=== PATIENT | female | born 1965 | race Caucasian/White ===

== ENCOUNTER → 2016-11-05 | Outpatient (CLI) | payer BC ==
--- NOTE | 2016-11-05 15:22 | MAMMOGRAPHY REPORT ---
BILATERAL DIGITAL SCREENING MAMMOGRAM TOMOSYNTHESIS WITH CAD: 11/05/2016 CLINICAL HISTORY: Routine screening. Patient has no complaints. TECHNIQUE: Breast tomosynthesis in addition to standard 2D mammography was performed. Current study was also evaluated with a Computer Aided Detection (CAD) system. COMPARISON: Comparison is made to exams dated: 11/02/2015 mammogram, 10/31/2014 mammogram, 10/25/2013 mammogram, 10/21/2012 mammogram, 10/21/2011 mammogram, and 10/05/2010 mammogram - [facility] enter. BREAST COMPOSITION: The tissue of both breasts is heterogeneously dense, which may obscure small ma sses. FINDINGS: There is a possible 10 mm mass in the lateral posterior left breast, best seen on the CC view. Additional spot compression tomosynthesis views and possibly ultrasound are recommended. No other suspicious mass, architectural distortion or cluster of microcalcifications is seen bilater ally. IMPRESSION: ACR BI-RADS CATEGORY 0: INCOMPLETE EVALUATION: NEED ADDITIONAL IMAGING EVALUATION The possible 10 mm mass in the lateral, posterior left breast needs additional evaluation. The patient will be called to schedule an appointment. Approximately 10% of breast cancers are not detected with mammography. A negative mammographic repor t should not delay biopsy if a clinically suggestive mass is present. Arlene Colorado M.D. ay/:11/05/2016 08:13:40 Certified Wellness Program Coordinator: Chelsea AMARO(Teressa)(Juan Diego), [facility] letter sent: Addl Imaging 0 BI-RADS Code: ACR BI-RADS Category 0: Incomplete Evaluation: Need Additional Imaging Evaluation
== END | disposition home or self-care (01) ==
LOC: C.MAMM 07:12
DX: Z12.31 Encounter for screening mammogram for malignant neoplasm of breast (principal); N63 Unspecified lump in breast

== ENCOUNTER → 2016-11-13 | Outpatient (CLI) | payer BC ==
--- NOTE | 2016-11-13 14:11 | MAMMOGRAPHY REPORT ---
UNILATERAL LEFT DIGITAL DIAGNOSTIC MAMMOGRAM TOMOSYNTHESIS WITH CAD AND TARGETED LEFT ULTRASOUND: CLINICAL HISTORY: Callback from screening mammogram for possible left breast mass. TECHNIQUE: Breast tomosynthesis in addition to standard 2D mammography was performed. Current study was also evaluated with a Computer Aided Detection (CAD) system. Spot compression Left CC and MLO 2D and tomosynthesis images were obtained. COMPARISON: Comparison is made to exams dated: 11/05/2016 mammogram, 11/02/2015 mammogram, 10/31/2014 mammogram, 07/21/2014 ultrasound, 07/21/2014 mammogram, and 10/25/2013 mammogram - [facility]. BREAST COMPOSITION: The tissue of the left breast is heterogeneously dense, which may obscure small masses. FINDINGS: The previously described ovoid 10 mm asymmetry seen within the left lateral breast is les s prominent on the spot compression views, and is equivocal for a mass versus normal fibroglandular tissue. This is seen on the cc view only with no correlate noted on the MLO view. Targeted ultrasound was performed of the left lateral breast in the region of the mammographic asymm etry. Multiple cysts were seen within the left lateral breast. In the left breast at 4:00, 5 cm fr om the nipple, there is a nearly anechoic circumscribed oval mass which measures 7 x 2 x 6 mm and is probably benign and likely represents a cyst. In the left breast at 1:00, 2 cm from the nipple, th ere is an oval circumscribed hypoechoic 6 x 3 x 6 mm mass, which likely represents a complicated cys t although a benign-appearing solid mass cannot be excluded. Adjacent to this is an anechoic benign cyst which measures 4 x 5 mm, as well as an oval anechoic benign 4 mm cyst in the left breast at 1: 00, 3 cm from the nipple. In the left breast at 1:00, 6 cm from the nipple, there is an oval circum scribed anechoic mass with some echogenic internal material measures 9 x 6 x 8 mm, which is probably benign and likely represents a complicated cyst. This mass may potentially correspond with the kashif mographic mass; alternatively, the mammographic finding could represent normal fibroglandular tissue . No suspicious masses were noted on ultrasound in the left lateral breast. IMPRESSION: ACR-BI-RADS CATEGORY 3: PROBABLY BENIGN, TARGETED ULTRASOUND ACR-BI-RADS CATEGORY 3: SD OBABLY BENIGN Multiple anechoic and hypoechoic masses seen within the left lateral breast on ultrasound at 1:00 an d 4:00, which are probably benign and likely represent simple and complicated cysts. The largest 9 mm mass in the left breast at 1:00 could correspond with the mammographic asymmetry; alternatively, the mammographic finding could represent normal fibroglandular tissue. Findings are probably benign and recommend follow-up diagnostic tomosynthesis mammograms and ultrasound of the left breast in 6 months to reevaluate. The patient has been verbally notified of the results. Approximately 10% of breast cancers are not detected with mammography. A negative mammographic repor t should not delay biopsy if a clinically suggestive mass is present. Alyse Vivar M.D. ah/:11/13/2016 09:56:07 Breaking Machine Operator: Demetrice AMARO(Teressa)(Juan Diego), [facility] letter sent: Follow Up Recommended 3 BI-RADS Code: ACR-BI-RADS Category 3: Probably Benign Ultrasound BI-RADS: ACR-BI-RADS Category 3: P robably Benign
== END | disposition home or self-care (01) ==
LOC: C.MAMM 09:08
DX: N63 Unspecified lump in breast (principal)

== ENCOUNTER → 2016-11-20 | Outpatient (CLI) | payer BC | END | disposition home or self-care (01) | LOC: C.PAPS 09:49 | PROVIDERS: ATTEND Obstetrics & Gynecology | DX: Z01.419 Encounter for gynecological examination (general) (routine) without abnormal findings (principal) ==

== ENCOUNTER → 2017-07-01 | Outpatient (CLI) | payer OTHER ==
--- NOTE | 2017-07-01 14:30 | MAMMOGRAPHY REPORT ---
UNILATERAL LEFT DIGITAL DIAGNOSTIC MAMMOGRAM TOMOSYNTHESIS WITH CAD AND TARGETED LEFT ULTRASOUND: 06/16 CLINICAL HISTORY: 51-year-old woman presents for follow-up in the left breast, with particular attent ion to circumscribed benign-appearing solid and solid versus cystic masses in the 1:00 and 4:00 axes on prior ultrasound. Patient initially called back from screening for an asymmetry in the upper oute r posterior left breast. TECHNIQUE: Left breast tomosynthesis in addition to standard 2D mammography was performed. Current st udy was also evaluated with a Computer Aided Detection (CAD) system. COMPARISON: Comparison is made to exams dated: 11/13/2016 ultrasound, 11/13/2016 mammogram, 11/05/2016 mammogram, 11/02/2015 mammogram, 10/31/2014 mammogram, and 07/21/2014 ultrasound - [facility]. BREAST COMPOSITION: The tissue of the left breast is heterogeneously dense, which may obscure small masses. FINDINGS: A partially circumscribed oval mass in the upper outer posterior left breast appears visual ly increased in size comparing to the full field left CC mammogram performed on 11/05/2016. It curre ntly measures 13 x 10 mm on tomosynthesis slice 35/55, and previously measured 10 x 7 mm on slice 32/ 56. Further characterization with ultrasound was performed. No other obvious new or increasing mass , focal area of architectural distortion or suspicious calcifications are identified in the left tavon st. Targeted ultrasound was performed in the lateral left breast with particular attention to the 1:00 an d 4:00 axes. In the 1:00 left breast, 6 cm from the nipple, there is a macro lobulated and angular s olid vascular mass measuring 12.3 x 12.0 x 6.9 mm. This has increased in size comparing to a prior u ltrasound performed 10/14/2016 at which time it measured 8.7 x 5.6 x 8.1 mm. Although this could rep resent a fibroadenoma, definitive characterization with ultrasound guided core biopsy is recommended given the interval increase in size. In the 1:00 axis, 2 cm from the nipple, there is an oval parallel circumscribed hypoechoic solid appe aring mass measuring 6.7 x 3.0 x 5.5 mm, previously measured 6.4 x 3.2 x 5.6 mm. . A cyst versus sev eral abutting cysts are seen deep to this benign appearing mass measuring 7.1 x 10.0 mm. In addition 3:00 left breast, 1 cm from the nipple, there is another oval parallel circumscribed hypoechoic lam d versus cystic mass measuring 7.3 x 3.5 x 4.9 mm. This is newly visualized. In the 4:00 left breas t, 5 cm from the nipple, there is an oval parallel circumscribed hypoechoic solid versus cystic mass measuring 6.8 x 2.6 x 5.3 mm. This is unchanged comparing to the prior ultrasound at which time it me asured 6.6 x 2.3 x 5.7 mm. IMPRESSION: ACR BI-RADS CATEGORY 4: SUSPICIOUS, TARGETED ULTRASOUND ACR BI-RADS CATEGORY 4: SUSPICIO US 1. Slight interval increase in size of a solid, lobulated and slightly angular mass in the 1:00 left breast, 6 cm from the nipple, currently measuring 12.3 mm, increased from 8.7 mm. Definitive charac terization with an ultrasound-guided core needle biopsy is recommended. 2. Other oval parallel circumscribed hypoechoic benign-appearing solid versus cystic masses in the 1 :00 left breast, 2 cm from the nipple and the 4:00 left breast, 5 cm from the nipple are unchanged. Another short interval follow-up targeted ultrasound in 6 months is recommended to ensure longer stab ility. 3. Newly visualized similar appearing oval parallel circumscribed hypoechoic solid versus cystic mas s in the 3:00 left breast on ultrasound for which repeat attention in 6 months is also recommended. These results and recommendations were discussed with the patient at the time of the exam. She tenta tively scheduled the left breast biopsy prior to leaving our department. Approximately 10% of breast cancers are not detected with mammography. A negative mammographic report should not delay biopsy if a clinically suggestive mass is present. Arlene Colorado M.D. ay/:07/01/2017 12:23:23 Donor Relations Manager: Lina BRYANT)(Juan Diego), [facility] letter sent: Abnormal 4/5 BI-RADS Code: ACR BI-RADS Category 4: Suspicious Ultrasound BI-RADS: ACR BI-RADS Category 4: Suspici ous
== END | disposition home or self-care (01) ==
LOC: C.MAMM 07:42
PROVIDERS: ATTEND Obstetrics & Gynecology
DX: N63.21 Unspecified lump in the left breast, upper outer quadrant (principal)

== ENCOUNTER → 2017-07-04 | Outpatient (CLI) | payer OTHER ==
--- NOTE | 2017-07-04 11:13 | Discharge Instructions ---
Discharge Instructions Procedure Procedure Date: Jul 04, 2017. Reason for visit: Left Mass. Discharge Discharge Date: Jul 04, 2017. Discharge Diagnosis: status post breast biopsy Instructions Activity Recommendations: Additional Limitations (see below) Return to School/Work: no limitations Recommended Home Diet: No Limitations Provider Instructions: ACTIVITY RECOMMENDATIONS: * No lifting, pushing, pulling or exercising the affected side for three days. RETURN TO SCHOOL/WORK: * You may return to work/school after the procedure, but do not perform any strenuous activities for 24 to 48 hours. MEDICATIONS: * Tylenol (two 325 mg) every four to six hours if needed for mild pain (if not allergic to Tylenol). DIET: * Resume previous diet. SPECIAL CARE INSTRUCTIONS: * Keep biopsy site dry for 24 hours. May shower after 24 hours, but do not soak (bathe) incision. * May remove Tegaderm (plastic patch) tomorrow AFTER showering. * Leave the steri-strips on for one week. Allow the steri-strips to fall off by themselves. If not off after one week, you may remove them. You may place a Bandaid crosswise over the strips, if desired. * Apply ice 10 minutes on and 10 minutes off as needed. * Wear a bra at bedtime to sleep more comfortably for 2-3 days. * Your referring physician should have the results after approximately 5 to 7 business days. * Call for unusual bleeding, fever, drainage, etc or if you have any questions call during normal business hours or after hours call Dr Vivar, . FOLLOW UP VISIT: Follow-up with Referring Physician as scheduled. Pasquale Sanchez Recommendations: Call your doctor if: * Temperature above 101 degrees * Pain not relieved by pain medicine ordered * There is increased drainage or redness from any incision * You have any unanswered questions or concerns. Your Doctors Instructions noted above were prepared by provider Alyse Vivar. Patient Signature Section: Patient Instructions Signature Page Umm Arcos Patient (or Guardian) Signature/Date: I have read and understand the instructions given to me by my caregivers. Caregiver/RN/Doctor Signature/Date: The above-named patient and/or guardian has received patient instructions on this date. + Original Patient Signature Page (only) stays with chart. Please make copy for patient.
--- NOTE | 2017-07-04 13:57 | MAMMOGRAPHY REPORT ---
ULTRASOUND GUIDED BIOPSY LEFT BREAST: 07/04/2017 CLINICAL HISTORY: Left 1:00 breast mass. PATIENT CONSENT: The procedure, risks and benefits were discussed with the patient and informed writt en consent was obtained. A timeout was performed immediately prior to the procedure. PROCEDURE DESCRIPTION: With ultrasound guidance, aseptic technique, and lidocaine as the local anesth etic (1% lidocaine to anesthetize the skin and 1% lidocaine with epinephrine to anesthetize the deepe r tissues), the mass of concern in the left 1:00 breast was sampled 4 times with a 14-gauge Achieve b iopsy needle. Immediately thereafter, with ultrasound guidance, aseptic technique, and lidocaine as t he local anesthetic, a metallic localizer clip was placed centrally in the mass. Direct pressure was applied to the site immediately post procedure and hemostasis was achieved. Postprocedure unilatera l mammograms were performed to confirm placement of the clip in the expected location of the breast m ass. The patient tolerated the procedure without complication. She was given wound care instruction s. The specimens were sent to pathology for analysis. COMPARISON: Comparison is made to exams dated: 07/01/2017 ultrasound, 07/01/2017 mammogram, 11/13/2016 ultrasound, 11/13/2016 mammogram, and 11/05/2016 mammogram - [facility]. IMPRESSION: ULTRASOUND GUIDED BIOPSY Ultrasound-guided core needle biopsy of the left 1:00 breast mass, with clip placement. The patient will receive pathology results from her referring provider. Alyse Vivar M.D. ah/:07/04/2017 11:14:51 Attending Technologist: Adam Mora RT(R)(M), [facility] [employer] Parer: Alyse Vivar MD, [facility]
--- NOTE | 2017-07-04 13:59 | MAMMOGRAPHY REPORT ---
UNILATERAL LEFT DIGITAL DIAGNOSTIC MAMMOGRAM TOMOSYNTHESIS: 07/04/2017 CLINICAL HISTORY: Status post left breast biopsy. TECHNIQUE: Breast tomosynthesis in addition to standard 2D mammography was performed. Postprocedura l left CC and ML tomosynthesis images including C views were obtained. COMPARISON: Comparison is made to exams dated: 11/13/2016 ultrasound, 11/13/2016 mammogram, 11/05/2016 mammogram, 11/02/2015 mammogram, 10/31/2014 mammogram, and 10/25/2013 mammogram - [facility]. BREAST COMPOSITION: The tissue of the left breast is heterogeneously dense, which may obscure small masses. FINDINGS: A new biopsy marker clip is seen within the biopsied mass in the left 1:00 breast. No sig nificant postbiopsy hematoma is seen. IMPRESSION: POST PROCEDURE IMAGING FOR MARKER PLACEMENT New biopsy marker clip status post left breast biopsy. Pathology results are pending. Approximately 10% of breast cancers are not detected with mammography. A negative mammographic report should not delay biopsy if a clinically suggestive mass is present. Alyse Vivar M.D. ah/:07/04/2017 11:30:45 Menswear Salesperson: Adam Mora RT(R)(M), [facility] BI-RADS Code: Post Procedure Imaging For Marker Placement
== END | disposition home or self-care (01) ==
LOC: C.MAMM 10:27
PROVIDERS: ATTEND Obstetrics & Gynecology
DX: N63.20 Unspecified lump in the left breast, unspecified quadrant (principal); D24.2 Benign neoplasm of left breast

== ENCOUNTER → 2017-07-22 | Day surgery (SDC) | payer OTHER ==
[2017-07-16 11:56] VITALS: Ht 157.5 cm; Wt 59.1 kg
[~2017-07-22] VITALS: Ht 157.5 cm; Wt 59.1 kg
[~2017-07-22] MED LIST: ATROPINE SULFATE 0.1 MG/ML 5ML SYR IV PRN; BUPIVACAINE 0.5 % 5 MG/1 ML MPF 30ML VIAL ONE; CALC600T9 PO; CEFAZOLIN 2000MG IV PUSH 15 ML IV SCH; DEXAMETHASONE SOD INJ 4 MG/ML VIAL ONE; EpHEDrine SULFATE INJ 50 MG/ML AMP IV PRN; FENTANYL CITRATE INJ 50 MCG/1 ML 2 ML VIAL IV PRN; FENTANYL CITRATE INJ 50 MCG/1 ML 2 ML VIAL ONE; HYDR-5688 PO; HYDROCODONE/ACETAMIN 5/325MG TAB PO PRN; IRON PO; LACTATED RINGER'S 1000ML 1,000 ML IV SCH; LIDOCAINE HCL 1% 20 ML VIAL ONE; LIDOCAINE HCL 2% 2 ML VIAL (20MG/ML) ONE; METHYLENE BLUE 0.5% 10 ML VIAL ONE; MIDAZOLAM HCL 1 MG/ML 2ML VIAL ONE; OMEG10007 PO; ONDANSETRON INJ 2 MG/ML 2 ML VIAL IV PRN; ONDANSETRON INJ 2 MG/ML 2 ML VIAL ONE; PROPOFOL IV EMULSION 10 MG/ML 20 ML VIAL IV ONE; SODIUM CHLORIDE 0.9% 1000ML 1,000 ML IV SCH; VITAMIN C PO; VNTHFA/IN INH
--- NOTE | 2017-07-22 11:52 | History & Physical Bridge - SC ---
H&P Re-Evaluation Bridge Note: I have examined the patient, reviewed the History & Physical and in the interval since the performance of the History & Physical I have noted the following changes of clinical significance: No changes noted
--- NOTE | 2017-07-22 12:53 | [facility] Operative Report ---
Operative Report Operative Date Jul 22, 2017. Pre-Operative Diagnosis Left Breast Phyllodes Neoplasm Post-Operative Diagnosis Same Procedure(s) Performed Left Breast Biopsy With Needle Localization Surgeon Dr. Montes De Oca Varnishing Unit Operator Surgeon(s) Delores Long Estimated Blood Loss 10 mL Findings clip w/n tissue Specimens A. Left Breast Tissue - out @ 1227, sent to [facility] @ 1231. Needle is lateral, short silk suture is inferior, long suture is superior. B. Additional Inferior Tissue - Methylene blue is new margin C. Additional Superior Tissue - Methylene blue is new margin. Drains None Anesthesia Type General Complication(s) none Disposition Recovery Room / PACU I attest to the content of the Intraoperative Record and any orders documented therein. Any exceptions are noted below.
--- NOTE | 2017-07-22 13:01 | Discharge Instructions-SurgCtr ---
Discharge Instructions Date of Service Jul 22, 2017. Visit Reason for Visit: Left Breast Phyllodes Neoplasm Discharge Discharge Diagnosis / Problem: Lt breast mass Discharge Goals Goal(s): Decrease discomfort, Improve function, Improve disease control Activity Recommendations Activity Limitations: as noted below Lifting Limitations: no more than 25 pounds (for 2 weeks) Exercise/Sports Limitations: until after follow-up appointment May Resume Sexual Activity: when tolerated Shower/Bathe: keep incision dry (for 2 days- may shower over incision on ) Driving or Machine Use: resume 1 day after discharge Anesthesia . Post Anesthesia Instructions: If you have had General Anesthesia or IV Sedation: * Do not drive today. * Resume driving when surgeon permits. * Do not make important decisions or sign legal documents today. * Call surgeon for: 1. Temperature elevations greater than 101 degrees F. 2. Uncontrollable pain. 3. Excessive bleeding. 4. Persistent nausea and vomiting. 5. Medication intolerance (nausea, vomiting or rash). * For nausea and vomiting use only clear liquids such as: tea, soda, bouillon until nausea subsides, then gradually increase diet as tolerated. * If you have any concerns or questions, call your surgeon's office. If physician is unavailable and it is an emergency, call 911 or go to the nearest emergency room. . Instructions / Follow-Up Instructions / Follow-Up SPECIAL CARE INSTRUCTIONS: * Cover incisions and change daily for comfort/drainage. * Leave steri strips in place * May use ibuprofen for pain as tolerated. * Expect some swelling and bruising. Call your doctor if: * Temperature above 101 degrees * Pain not relieved by pain medicine ordered * There is increased drainage or redness from any incision * You have any unanswered questions or concerns [phone]. FOLLOW UP VISIT: If not already scheduled, please call the office for a follow-up visit. for 2 weeks- check up- no sutures to remove OFFICE PHONE NUMBER: Dr. Montes De Oca Office Diet Recommendations Home Diet: resume previous diet Procedures Procedures Performed: Left Breast Biopsy With Needle Localization Pending Studies Studies pending at discharge: no Medical Emergencies . Who to Call and When: Medical Emergencies: If at any time you feel your situation is an emergency, please call 911 immediately. . Non-Emergent Contact Non-Emergency issues call your: Primary Care Provider, Surgeon . . "Provider Documentation" section prepared by Suresh Montes De Oca. .
--- NOTE | 2017-07-22 13:28 | MAMMOGRAPHY REPORT ---
NEEDLE LOCALIZATION LEFT BREAST: 07/22/2017 CLINICAL HISTORY: 51-year-old woman with a biopsy-proven fibroepithelial lesion in the 1:[address] She presents for preoperative needle and wire localization with subsequent surgical excision. COMPARISON: Comparison is made to exams dated: 07/04/2017 ultrasound biopsy, 07/04/2017 mammogram, 06/16 ultrasound, 07/01/2017 mammogram, 11/13/2016 mammogram, and 11/05/2016 mammogram - [facility]. PATIENT CONSENT: The risks of the procedure were explained to the patient and informed consent was ob tained. The patient denied eating or drinking anything this morning that would preclude anesthesia, she also denied allergy to lidocaine. PROCEDURE DESCRIPTION: Prior left breast imaging including diagnostic mammograms and ultrasound perfo rmed 07/01/2017, ultrasound-guided core biopsy and post procedure mammograms performed 07/04/2017 wer e reviewed. The biopsied mass with associated ribbon-shaped biopsy marker clip in the 1:00 posterior left breast is the intended target for localization. With the patient in the supine position, the 1 :00 left breast mass was identified with ultrasound. The skin was cleansed with Betadine. 1% buffer ed Lidocaine without epinephrine was administered as local anesthesia. A 5cm Galvez II needle and wi re combination was inserted into the breast via a lateral approach. Optimal positioning was confirmed using ultrasound guidance and the wire was locked in place, leaving both the needle and wire within the breast, as per surgeon's preference. Post localization left CC and ML 2-D and tomosynthesis images were obtained, which demonstrate the ri bbon-shaped biopsy marker clip at the proximal portion of the savanah. The entire procedure including a pproach and needle length were discussed with the operating surgeon prior to surgery. The patient to lerated the procedure well and there was no immediate complication. She was sent to the operating ro om in satisfactory condition. The specimen radiograph demonstrates the localizing needle and wire combination, the ribbon-shaped bi opsy marker clip and no other obvious abnormality. The findings are compatible with successful preop erative localization and subsequent surgical excision. The biopsy marker clip is near the proximal p ortion of the wire and the surgeon reported he had taken additional superficial tissue at the time of surgery, which was not imaged. IMPRESSION: NEEDLE LOCALIZATION Status post successful preoperative needle and wire localization for a biopsy-proven fibroepithelial lesion in the 1:00 left breast. The imaged specimen includes the intended abnormality. The patient will receive notification of the final pathology results from her referring physician. Arlene Colorado M.D. ay/:07/22/2017 12:52:11 Acid Correction Hand: Demetrice BRYANT)(Juan Diego), [facility]
--- NOTE | 2017-07-22 13:30 | MAMMOGRAPHY REPORT ---
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 Patient re sults for preoperative needle and wire localization. Please refer to the report from left breast ultrasound guided needle localization performed at the [facility] time for full detail. IMPRESSION: Please refer to the report from left breast ultrasound guided needle localization performed at the [facility] time for full detail. Approximately 10% of breast cancers are not detected with mammography. A negative mammographic report should not delay biopsy if a clinically suggestive mass is present. Arlene Colorado M.D. ay/:07/22/2017 10:22:12 Laboratory Apparatus Glass Grinder: Demetrice AMARO(Teressa)(M), [facility] BI-RADS Code: n/a
--- NOTE | 2017-07-22 13:32 | Anesthesia Progress Nt - [facility] ---
Anesthesia Post Op Note Date & Time Jul 22, 2017 at 13:32 Vital Signs Pain Intensity: 3 Vital Signs Past 12 Hours Date Time Temp Pulse Resp B/P (MAP) Pulse Ox O2 Delivery O2 Flow Rate FiO2 07/22/17 13:06 36.5 74 12 111/68 100 Mask 6 07/22/17 09:08 36.9 68 16 100/48 (65) 100 Room Air Notes Mental Status: alert / awake / arousable, participated in evaluation Pt Amnestic to Procedure: Yes Nausea / Vomiting: adequately controlled Pain: adequately controlled Airway Patency, RR, SpO2: stable & adequate BP & HR: stable & adequate Hydration State: stable & adequate Anesthetic Complications: no major complications apparent
[2017-07-22 14:04] VITALS: TEMP 36.6
[2017-07-22 14:21] VITALS: BP 123/82; PULSE 76; O2SAT 100
--- NOTE | 2017-07-22 14:30 | OPERATIVE REPORT ---
DATE OF OPERATION: 07/22/2017 NAME OF OPERATION: Needle localization and excision, left breast mass. PREOPERATIVE DIAGNOSIS: Left breast mass. POSTOPERATIVE DIAGNOSIS: Same. STAFF SURGEON: Dr. Montes De Oca. TUFTER: Jan Long PA-C. ANESTHESIA: General LMA. DESCRIPTION OF PROCEDURE: The patient was brought in the operating room and placed on the operating table in supine position. Her left breast was prepped and draped in usual fashion. A needle had been placed laterally. Initially, the skin and subcutaneous tissue medial to the needle were anesthetized using 0.5% plain Marcaine, an incision made carrying dissection down around the needle, removing the tissue. The tissue was marked with the needle lateral, short silk suture inferior and a long silk suture superior. This was sent for imaging and Dr. Colorado said the clip was within the tissue. I did take additional tissue, the entire way around this area and at tissue was marked inferior and superior tissue with methylene blue as the new margins. A clip was placed on the chest wall at the level of the mass and the deep tissue reapproximated using 2-0 plain catgut suture then the skin reapproximated using subcuticular 5-0 Monocryl and Steri-Strips. The patient was transferred to recovery room in stable condition. I attest to the content of the Intraoperative Record and any orders documented therein. Any exception s are noted below.
--- NOTE | 2017-07-22 14:31 | OPERATIVE REPORT ---
DATE OF OPERATION: 07/22/2017 ADDENDUM NAME OF OPERATION: Needle localization excision, left breast mass. My apartment assistant manager Jan Long PA-C helped with prepping and draping, excision of the mass and closure of the wound. I attest to the content of the Intraoperative Record and any orders documented therein. Any exception s are noted below.
--- NOTE | 2017-07-23 14:02 | MAMMOGRAPHY REPORT ---
SPECIMEN: 07/22/2017 CLINICAL HISTORY: Surgical specimen from left breast excisional biopsy. Please refer to the report from left breast ultrasound guided needle localization performed at the [facility] time for full detail. IMPRESSION: SPECIMEN Please refer to the report from left breast ultrasound guided needle localization performed at the [facility] time for full detail. Arlene Colorado M.D. ay/:07/22/2017 15:03:31 Ladle Filler: Adam AMARO(R)(M), [facility]
== END | disposition home or self-care (01) ==
LOC: X.SURG 08:56
PROVIDERS: ATTEND Surgery
DX: D48.62 Neoplasm of uncertain behavior of left breast (principal); J45.909 Unspecified asthma, uncomplicated; N84.1 Polyp of cervix uteri; Z80.3 Family history of malignant neoplasm of breast; Z80.1 Family history of malignant neoplasm of trachea, bronchus and lung; Z80.51 Family history of malignant neoplasm of kidney

== ENCOUNTER → 2018-01-02 | Outpatient (CLI) | payer OTHER ==
[~2018-01-02] MED LIST changes: -ATROPINE SULFATE 0.1 MG/ML 5ML SYR IV PRN; -BUPIVACAINE 0.5 % 5 MG/1 ML MPF 30ML VIAL ONE; -CEFAZOLIN 2000MG IV PUSH 15 ML IV SCH; -DEXAMETHASONE SOD INJ 4 MG/ML VIAL ONE; -EpHEDrine SULFATE INJ 50 MG/ML AMP IV PRN; -FENTANYL CITRATE INJ 50 MCG/1 ML 2 ML VIAL IV PRN; -FENTANYL CITRATE INJ 50 MCG/1 ML 2 ML VIAL ONE; -HYDROCODONE/ACETAMIN 5/325MG TAB PO PRN; -LACTATED RINGER'S 1000ML 1,000 ML IV SCH; -LIDOCAINE HCL 1% 20 ML VIAL ONE; -LIDOCAINE HCL 2% 2 ML VIAL (20MG/ML) ONE; -METHYLENE BLUE 0.5% 10 ML VIAL ONE; -MIDAZOLAM HCL 1 MG/ML 2ML VIAL ONE; -ONDANSETRON INJ 2 MG/ML 2 ML VIAL IV PRN; -ONDANSETRON INJ 2 MG/ML 2 ML VIAL ONE; -PROPOFOL IV EMULSION 10 MG/ML 20 ML VIAL IV ONE; -SODIUM CHLORIDE 0.9% 1000ML 1,000 ML IV SCH
--- NOTE | 2018-01-05 07:43 | MAMMOGRAPHY REPORT ---
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 She presents for short interval follow-up of other previously seen left tavon st masses. The patient denies any palpable lumps or other current complaints. TECHNIQUE: The study was acquired using full field digital technology and interpreted from soft copy. Breast tomosynthesis in addition to standard 2D mammography was performed. Current study was also ev aluated with a Computer Aided Detection (CAD) system. Bilateral CC and MLO and left X CCL 2D and katie osynthesis images were obtained. COMPARISON: Comparison is made to exams dated: 07/22/2017 mammogram, 07/04/2017 mammogram, 07/01/2017 ma mmogram, 11/13/2016 mammogram, 11/05/2016 mammogram, and 11/02/2015 mammogram - [facility] nt. BREAST COMPOSITION: The tissue of both breasts is heterogeneously dense, which may obscure small mass es. FINDINGS: There are new postsurgical changes in the left upper outer quadrant from prior excision of a benign p hyllodes tumor, including new density, architectural distortion, and a surgical clip at the surgical bed. A linear scar marker denotes a scar on the left upper outer breast. A few scattered benign-ulises earing calcifications are noted at the surgical bed. The remainder of both breasts are stable compar ed to prior exams, without suspicious masses, calcifications, or areas of architectural distortion no max. Targeted ultrasound was performed of the surgical bed in the left 1:00 breast. There is ill-defined hypoechoic/isoechoic tissue at the surgical bed which has the appearance of postsurgical changes, wit hout evidence of a recurrent mass. In the left 1:00 breast, 2 cm from the nipple, again noted is an oval circumscribed hypoechoic benign-appearing 6 x 3 x 6 mm mass which is stable dating back to the 2016 exam. An adjacent oval anechoic benign simple cyst measuring 8 mm is also seen. In the left 3:00 breast, 1 cm from the nipple, again noted is an oval circumscribed hypoechoic benign-appearing 8 x 3 x 8 mm mass, stable compared to the June 2017 exam. In the left 4:00 breast, 5 cm from the nipple, again noted is an oval hypoechoic circumscribed benign-appearing 6 x 3 x 5 mm mass which is s table dating back to the October 2016 exam. IMPRESSION: ACR-BI-RADS CATEGORY 3: PROBABLY BENIGN, ULTRASOUND ACR-BI-RADS CATEGORY 3: PROBABLY ZOE GN 1. Expected postsurgical changes in the left upper outer quadrant from recent excision of a benign p hyllodes tumor. No evidence of a recurrent mass at the surgical bed. Hypoechoic circumscribed benign -appearing masses in the left 1:00, 3:00, and 4:00 breast are stable compared to prior exams and are probably benign and may represent complicated cysts or fibroadenomas. Recommend follow-up diagnostic tomosynthesis mammograms and repeat targeted ultrasound of the left breast in 6 months to confirm lo nger stability. 2. No mammographic evidence of malignancy in the right breast. Recommend follow-up in 1 year. The patient has been verbally notified of the results. Some breast cancers are not detected with mammography. A negative mammographic report should not emi y biopsy if a clinically suggestive mass is present. Alyse Vivar M.D. ah/:01/02/2018 11:30:40 Traffic Manager: RT Charbel(R)(M), [facility]; Alyse Vivar MD, [facility] letter sent: Follow Up Recommended 3 OVERALL STUDY BIRADS: 3 Probably benign
== END | disposition home or self-care (01) ==
LOC: C.MAMM 08:13
PROVIDERS: ATTEND Obstetrics & Gynecology
DX: Z09 Encounter for follow-up examination after completed treatment for conditions other than malignant neoplasm (principal); N63.21 Unspecified lump in the left breast, upper outer quadrant; N63.23 Unspecified lump in the left breast, lower outer quadrant